=== PATIENT | female | born 1975 | race Caucasian/White ===

== ENCOUNTER 2017-12-06 15:32 | Emergency (ER) | payer MEDICAID ==
[~2017-12-06] VITALS: Ht 160 cm; Wt 64.0 kg
[2017-12-06 15:39] VITALS: Ht 160 cm; Wt 64.0 kg
[2017-12-06 17:24] VITALS: BP 114/67
== END 2017-12-06 17:24 | disposition home or self-care (01) ==
LOC: ED 15:32
DX: R51 Headache (principal)

== ENCOUNTER 2019-02-08 20:15 | Emergency (ER) | payer MEDICAID ==
[~2019-02-08] VITALS: Ht 162.6 cm; Wt 63.5 kg
[2019-02-08 20:20] VITALS: BP 106/55; Ht 162.6 cm; Wt 63.5 kg
== END 2019-02-08 21:47 | disposition home or self-care (01) ==
LOC: ED 20:15
DX: J06.9 Acute upper respiratory infection, unspecified (principal)